=== PATIENT | male | born 1950 | race Two or more races ===

== ENCOUNTER 2024-12-25 13:45 | Emergency (ER) | payer MEDICAID, SELFPAY ==
[2024-12-25 14:01] VITALS: BP 145/57; PULSE 61; RESP 18; TEMP 36.9; O2SAT 96; BMI 26.4
--- NOTE | 2024-12-25 14:15 | XR_ITS ---
Examination: PA lateral chest 2 views TECHNIQUE: Upright AP lateral chest 2 views Exam date and time: December 25, 2024 1438 hours Comparison June 11, 2024 INDICATIONS: Coughing fever beginning 3 days ago. FINDINGS: Scarring versus mild pneumonia lingular segment Minor prominence of ventricle Cardiac leads satisfactory position Intact osseous structures IMPRESSION: Scarring versus mild pneumonia lingular segment left upper lobe, clinical correlation advised
--- NOTE | 2024-12-25 15:14 | PD.EDURI ---
Upper Respiratory Inf. RME/HPI General Chief Complaint: Flu Like Symptoms Stated Complaint: COUGH AND RAN OUT OF DIABETIC MEDICATION Time Seen by Provider: 12/25/24 13:59 Source: patient Arrival date/time: 12/25/24 13:45 74-year-old male with a history of type 2 diabetes, hypertension presents to the emergency room with a chief complaint of coughing, congestion, weakness x 3 weeks. Patient states he has also been out of diabetic medication for the last 3 days and recently picked up a prescription this morning and took his first dose. Patient denies any other signs and symptoms Mode of arrival: ambulatory Limitations: no limitations Related Data Home Medications ?Medication ?Instructions ?Recorded ?Confirmed empagliflozin 25 mg tablet 25 mg PO QDAY 03/24/21 10/31/22 (Jardiance) amlodipine 5 mg tablet 5 mg PO DAILY 10/26/22 10/31/22 meloxicam 15 mg tablet 15 mg PO QDAY 10/26/22 10/31/22 sitagliptin phosphate 50 1 tab PO BID 10/31/22 10/31/22 mg-metformin 1,000 mg tablet (Janumet) Previous Rx's ?Medication ?Instructions ?Recorded ondansetron HCl 4 mg tablet 4 mg PO Q8H #14 tabs 04/30/23 sucralfate 1 gram tablet (Carafate) 1 g PO BID #30 tabs 04/30/23 azithromycin 250 mg tablet See Rx Instructions PO .COMPLEX #6 06/11/24 tabs azithromycin 250 mg tablet See Rx Instructions PO .COMPLEX #6 12/25/24 (Zithromax Z-Stephon) tabs Allergies Allergy/AdvReac Type Severity Reaction Status Date / Time midazolam AdvReac Severe Agitated Verified 12/25/24 13:50 Review of Systems Review of Systems Systems Reviewed: All systems reviewed, normal except as documented Constitutional Constitutional: Reports system reviewed and no additional complaints, except as documented, Denies fatigue, Denies fever(s), Denies headache(s) and Denies weakness Eyes Eyes: Reports system reviewed and no additional complaints, except as documented, Denies blurry vision and Denies change in vision ENT Ears, Nose, Mouth, and Throat: Reports system reviewed and no additional complaints, except as documented, Denies otalgia, Denies headache(s), Reports nasal congestion, Denies throat swelling and Denies vertigo Cardiovascular Cardiovascular: Reports system reviewed and no additional complaints, except as documented, Denies chest pain, Denies dyspnea and Denies dyspnea on exertion Respiratory Respiratory: Reports system reviewed and no additional complaints, except as documented, Reports chest congestion, Reports cough, Denies dyspnea, Denies dyspnea on exertion and Denies wheezing Gastrointestinal Gastrointestinal: Reports system reviewed and no additional complaints, except as documented, Denies abdominal pain, Denies cramping, Denies nausea and Denies vomiting Genitourinary Genitourinary: Reports system reviewed and no additional complaints, except as documented, Denies dysuria and Denies hematuria Musculoskeletal Musculoskeletal: Reports system reviewed and no additional complaints, except as documented and Denies back pain Integumentary/Breasts Skin/Breast: Reports system reviewed and no additional complaints, except as documented and Denies wounds Neurologic Neurologic: Reports system reviewed and no additional complaints, except as documented, Denies confusion, Denies headache(s), Denies lack of coordination, Denies vertigo and Denies weakness Psychiatric Psychiatric: Reports system reviewed and no additional complaints, except as documented, Denies anxiety, Denies confusion, Denies depression, Denies paranoia, Denies suicidal ideation and Denies tactile hallucinations Endocrine Endocrine: Reports system reviewed and no additional complaints, except as documented and Denies fatigue Hematologic/Lymphatic Hematologic/Lymphatic: Reports system reviewed and no additional complaints, except as documented and Denies lymphadenopathy Allergic/Immunologic Allergic/Immunologic: Reports system reviewed and no additional complaints, except as documented, Denies throat swelling, Denies urticaria and Denies wheezing Past Medical History Past Medical History NEUROLOGIC: Negative Neurological Disorders CARDIAC: Positive Cardiac Disorders, Hypercholesterolemia, Congestive Heart Failure and Hypertension RESPIRATORY: Negative Chronic Obstructive Pulmonary Disease (COPD) or Asthma GASTROINTESTINAL: Negative Gastrointestinal Disorders GENITOURINARY: Negative Genitourinary Disorders or Renal Disease MUSCULOSKELETAL: Positive Musculoskeletal Disorders ENDOCRINE: Positive Diabetes Mellitus Type 2; Negative Endocrine Disorders or Diabetes Mellitus Type 1 HEMATOLOGIC: Negative Blood Disorders or Sickle Cell Disease Social History SMOKING STATUS: Never smoker SUBSTANCE USE: unknown ED Exam General Limitations: Present no limitations General appearance: Present alert and in no apparent distress Head Head exam: Present atraumatic Eye Eye exam: Present normal appearance, PERRL and EOMI ENT ENT exam: Present normal exam, normal oropharynx and mucous membranes moist Neck Neck exam: Present normal inspection, full ROM and trachea midline Chest Chest inspection: Present normal inspection and symmetric chest wall rise Respiratory Respiratory exam: Present normal lung sounds bilaterally and wheezes; Absent respiratory distress, stridor, accessory muscle use or prolonged expiratory phase Expanded Respiratory Exam Location: Left: wheezes, Right: wheezes and Lower: wheezes Cardiovascular Cardiovascular exam: Present regular rate, normal rhythm and normal heart sounds Abdominal Exam Abdominal exam: Present soft and normal bowel sounds Extremities Exam Extremities exam: Present normal inspection and full ROM Back Exam Back exam: Present normal inspection and full ROM Neurological Exam Neurological exam: Present alert, oriented X3 and CN II-XII intact Psychiatric Psychiatric exam: Present normal affect and normal mood Skin Skin exam: Present warm, dry, intact and normal color Course Quality Measures none Orders Category Date Time Status Bedside COVID-19 Antigen Test NOW Care 12/25/24 14:15 Active Bedside Influenza A&B Antigen Test NOW Care 12/25/24 14:15 Completed Fingerstick [Bedside Blood Glucose] NOW Care 12/25/24 14:15 Active XR chest 2V Stat Exams 12/25/24 14:15 Completed Albuterol/Ipratr Rt Emma [Duoneb Rt Emma] Med 12/25/24 14:16 Discontinued 3 ml INH X1 ONE Insulin Regular Med 12/25/24 14:22 Discontinued 8 unit SC X1 ONE Vital Signs Vital signs: Vital Signs Temperature 98.5 F 12/25/24 14:01 Pulse Rate 61 12/25/24 14:01 Respiratory Rate 18 12/25/24 14:01 Blood Pressure 145/57 H 12/25/24 14:01 Pulse Oximetry (%) 96 12/25/24 14:01 Oxygen Delivery Method Room Air 12/25/24 14:01 O2 saturation 96% on room air Upper Respiratory Infection MDM Narrative MDM Narrative:: 74-year-old male with a history of type 2 diabetes, hypertension presents to the emergency room with a chief complaint of coughing, congestion, weakness x 3 weeks. Patient states he has also been out of diabetic medication for the last 3 days and recently picked up a prescription this morning and took his first dose. Patient denies any other signs and symptoms Patient is hemodynamically stable he is afebrile not tachycardic O2 saturation 100% on room air Lung sounds have some mild left-sided upper and lower wheezing with auscultation. A breathing treatment was given and the patient had significant improvement to his symptoms X-ray was completed and shows some mild pneumonia. Antibiotics are sent to the patient's pharmacy patient was discharged and educated to follow-up with primary care provider and return to the emergency room for any evidence of worsening signs or symptoms Patient data External records reviewed:: [facility] previous records Clinical information provided by:: patient Social determinants that could affect healthcare access:: none Patient has the following chronic illnesses:: Diabetes and hypertension How is presenting disease/condition affected by chronic disease/condition?: uneffected by Evaluation data The following diagnostics were reviewed and interpreted by me:: lab results and radiology exam(s) Lab and/or radiology exams considered but not ordered:: Labs and radiology exams considered and ordered Interpretation Summary: Chest [id number]: Scarring versus mild pneumonia lingular segment Minor prominence of ventricle Cardiac leads satisfactory position Intact osseous structures IMPRESSION: Scarring versus mild pneumonia lingular segment left upper lobe, clinical correlation advised Medications / Prescriptions Medications or Prescriptions considered but not ordered:: Medication given Medication administrations:: Medication Administration History Discontinued Medications Albuterol/Ipratropium (Albuterol/Ipratropium (Duoneb) Rt Emma 3 Ml Nebu) 3 ml INH X1 ONE Stop: 12/25/24 14:17 Last Admin: 12/25/24 15:37 Dose: 3 ml Documented By: JOHNY Insulin Human Regular (Insulin Hum Regular 1 Unit/0.01 Ml (Per Unit)) 8 unit SC X1 ONE Stop: 12/25/24 14:23 Last Admin: 12/25/24 15:26 Dose: 8 unit Documented By: SHIRA Co-signed By: [facility] Medication given Consultations Consultation(s) initiated? (list below): No Diagnosis Upper Respiratory Differential Diagnosis: upper respiratory infection, viral infection, bronchitis, influenza and other (Community-acquired pneumonia) Most likely diagnosis given after review of the tests above:: Community-acquired pneumonia Admission Indicated Admission indicated?: not indicated Admission Request Was there a request for admission?: No Disposition Plan Disposition Plan: Discharge Discharge Attestation Discharge Attestation: The patient and all family members were given an opportunity to ask questions and understood the discharge instructions. Discharge instructions specifically effects, indications for sooner follow up or return to the emergency department, and the expected course of current diagnosis. Patient condition: Stable Discharge Plan Plan Patient Disposition: HOME (Self Care) Disposition Comment: Stable Prescriptions/Referrals Prescriptions/Med Rec: New azithromycin [Zithromax Z-Stephon] 250 mg tablet See Rx Instructions .ROUTE .COMPLEX Qty: 6 0RF Rx Instructions: For 250 mg dose pack: take 500 mg today (day 1), then 250 mg for 4 days (days 2-5) No Action Jardiance 25 mg Tablet 25 mg PO QDAY meloxicam 15 mg Tablet 15 mg PO QDAY amlodipine 5 mg Tablet 5 mg PO DAILY Janumet 50-1,000 mg Tablet 1 tab PO BID sucralfate [Carafate] 1 gram tablet 1 g PO BID Qty: 30 1RF ondansetron HCl 4 mg tablet 4 mg PO Q8H Qty: 14 0RF azithromycin 250 mg tablet See Rx Instructions .ROUTE .COMPLEX Qty: 6 0RF Rx Instructions: For 250 mg dose pack: take 500 mg today (day 1), then 250 mg for 4 days (days 2-5) Referrals: Dolores Fernando MD [Primary Care Provider] - In 1 week Problem List Clinical Impression: Community acquired pneumonia Patient/Caregiver Discharge Instructions Education Materials: ED Pneumonia (Adult) Additional Instructions: Por favor, consulte con bustos m?dico de cabecera en las pr?ximas 24 a 48 horas. La radiograf?a de t?rax muestra neumon?a. Se env?an antibi?ticos a bustos farmacia; rec?jalos y t?melos seg?n lo indicado. Si hay evidencia de empeoramiento de los signos o s?ntomas, regrese a la sho de emergencias de inmediato. Print Language: Slovenian Stand Alone Forms: Darcy Award Info., Patient Portal Info Letter PA/DRAMA THERAPIST Supervising Physician PA/DRAMA THERAPIST Supervising Physician: Dr. De Leon
[2024-12-25] MEDS: INSULIN HUM REGULAR 1 UNIT/0.01 ML (PER UNIT) 8 UNIT SC (15:26)
[2024-12-25 15:37] VITALS: PULSE 58; RESP 18; O2SAT 100
[2024-12-25] MEDS: ALBUTEROL/IPRATROPIUM (Duoneb) RT SOL 3 ML NEBU INH (15:37)
== END 2024-12-25 17:44 | disposition home or self-care (01) ==
PROVIDERS: Emergency Provider Emergency Medicine; PCP Obstetrics & Gynecology
DX: J18.9 Pneumonia, unspecified organism (principal); E11.9 Type 2 diabetes mellitus without complications; I10 Essential (primary) hypertension
CPT/HCPCS: 71046; 87400; 87811; 94640; 96372; 99283; A9270; J1815

== ENCOUNTER 2025-10-19 12:14 | Inpatient (IN) | payer MEDICAID, SELFPAY ==
[2025-10-19] VITALS (7 sets, daily range): BP systolic 100–124; BP diastolic 46–80; PULSE 73–98; RESP 17–90; TEMP 36.7–38.8; O2SAT 90–98; BMI 24.2; BMI 27.1
--- NOTE | 2025-10-19 13:43 | PD.EDRME ---
Rapid Medical Screening Exam RME Arrival date/time: 10/19/25 12:14 This is a 74-year-old male that comes into the emergency room complaints of skin tears/abrasions and wounds to bilateral legs and buttocks areas. Patient states he has had some of these skin breakdowns for a while but they recently got worse. Patient also complains of fever and chills. Patient has a history of high blood pressure, diabetes I have greeted and performed a focused initial assessment of this patient. Initial appropriate labs ordered at this time. A comprehensive ED assessment and evaluation of the patient and analysis of all test and completion of medical decision making process will be conducted by additional ED provider. Chief Complaint: Skin/Abscess/Foreign Body Time Seen by Provider: 10/19/25 12:20 Vital signs: Vital Signs Temperature 98.1 F 10/19/25 12:22 Pulse Rate 93 10/19/25 12:22 Respiratory Rate 19 10/19/25 12:22 Blood Pressure 124/80 10/19/25 12:22 Pulse Oximetry (%) 98 10/19/25 12:22 Oxygen Delivery Method Room Air 10/19/25 12:22 Exam: Alert and oriented, breathing even and unlabored Clinical Impression: Fever, multiple wounds throughout body
[2025-10-19 14:07] LABS: Lactate (Lactic Acid) 1.9 mMol/L (0.4-2.0)
[2025-10-19 14:33] LABS: Basophils # (Auto) 0.0 Thou/mm3 (0.0-0.2); Basophils % (Auto) 0 % (0-2.5); Eosinophils # (Auto) 0.1 Thou/mm3 (0.0-0.5); Eosinophils % (Auto) 1 % (0-10); Hematocrit 45.3 % (41.0-53.0); Hemoglobin 14.4 g/dL (13.5-16.0); Immature Granulocytes Auto 0.07 Thou/mm3 (0.00-0.00); Lymphocytes # (Auto) 1.5 Thou/mm3 (1.0-4.8); Lymphocytes % (Auto) 15 % (10-50); Mean Corpuscular HGB Conc 31.8 g/dl (31.0-37.0); Mean Corpuscular Hemoglobin 28.3 pg (25.0-35.0); Mean Corpuscular Volume 89 fL (80-100); Monocytes # (Auto) 0.3 Thou/mm3 (0.0-0.8); Monocytes % (Auto) 4 % (0-12); Neutrophils # (Auto) 7.9 Thou/mm3 (1.8-7.7); Neutrophils % (Auto) 80 % (37-80); Nucleated Red Blood Cell # 0.00 Thou/mm3 (0.00-0.00); Nucleated Red Blood Cell % 0 /100 WBC (0); Platelet Count 244 Thou/mm3 (140-440); RDW Standard Deviation 59.4 fL (35.1-43.9); Red Blood Count 5.09 Miln/mm3 (4.50-5.90); White Blood Count 9.8 Thou/mm3 (3.8-10.6)
[2025-10-19 14:34] LABS: Alanine Aminotransferase 30 U/L (10-49); Albumin, Serum 4.5 gm/dL (3.4-4.8); Albumin/Globulin Ratio 1.5 (1.2-2.2); Alkaline Phosphatase 145 U/L (46-116); Anion Gap 11 (7-16); Aspartate Amino Transferase 31 U/L (0-34); BUN/Creatinine Ratio 14 Ratio (12-20); Bilirubin,Total 0.5 mg/dL (0.3-1.2); Blood Urea Nitrogen 14 mg/dL (9-23); Calcium 8.8 mg/dL (8.3-10.6); Calcium (Corrected) 8.8 mg/dL (8.5-10.1); Carbon Dioxide 26.1 mMol/L (20.0-31.0); Chloride 100 mMol/L (98-107); Creatinine (Component) 1.0 mg/dL (0.6-1.3); Estimated Creatinine Clearance 57.6 mL/min (>60); Globulin 3.1 gm/dL (2.3-3.5); Glucose 56 mg/dL (74-106); Osmolality,Calculated 272 (275-295); Potassium 4.2 mMol/L (3.4-5.1); Procalcitonin 0.16 ng/ml (0.0-0.49); Sodium 137 mMol/L (136-145); Total Protein 7.6 gm/dL (5.7-8.2); eGFR > 60 See Note
--- NOTE | 2025-10-19 16:28 | PC.NURSE ---
CONTACTED DR JUAREZ (DERMATOLOGY) TO CONSULT WITH ISAIAH MARTINEZ. PHONE NUMBER [phone]
--- NOTE | 2025-10-19 16:38 | EDNOTE_ITS ---
ED Skin Abcess FB-RME/HPI General Chief complaint: Skin/Abscess/Foreign Body Stated complaint: RASH Time Seen by Provider: 10/19/25 12:20 Arrival date/time: 10/19/25 12:14 Mode of arrival: ambulatory Limitations: language barrier RME / HPI RME / HPI narrative: 10/19/25 12:14 This is a 74-year-old male that comes into the emergency room complaints of skin tears/abrasions and wounds to bilateral legs and buttocks areas. Patient states he has had some of these skin breakdowns for a while but they recently got worse. Patient also complains of fever and chills. Patient has a history of high blood pressure, diabetes At time of my assessment, patient reveals patchy red areas of insult that are weeping serous fluid rather than definitive blood. Friable tissue is noted throughout the bilateral lower extremities and extending up into the buttocks region. Patient denies any fever nausea or vomiting. Vital signs were stable arrival. Patient denies any history of skin related concerns. Patient does have a history of diabetes. Exam: Alert and oriented, breathing even and unlabored Impression: Fever, multiple wounds throughout body Related Data Home Medications ?Medication ?Instructions ?Recorded ?Confirmed empagliflozin 25 mg tablet 25 mg PO QDAY 03/24/2107/15 (Jardiance) amlodipine 5 mg tablet 5 mg PO DAILY 10/26/2210/31 meloxicam 15 mg tablet 15 mg PO QDAY 10/26/2210/31 sitagliptin phosphate 50 1 tab PO BID 10/31/22 mg-metformin 1,000 mg tablet (Janumet) Previous Rx's ?Medication ?Instructions ?Recorded ondansetron HCl 4 mg tablet 4 mg PO Q8H #14 tabs 04/30 sucralfate 1 gram tablet (Carafate) 1 g PO BID #30 tab s 04/30/23 azithromycin 250 mg tablet See Rx Instructions PO .COM PLEX #6 06/11/24 tabs azithromycin 250 mg tablet See Rx Instructions PO .COM PLEX #6 12/25/24 (Zithromax Z-Stephon) tabs Allergies Allergy/AdvReac Type Severity Reaction Status Date / Time midazolam AdvReac Severe Agitated Verified 10/19/25 12:22 Review of Systems Review of Systems Systems Reviewed: All systems reviewed, normal except as documented Past Medical History Past Medical History NEUROLOGIC: Negative Neurological Disorders CARDIAC: Positive Cardiac Disorders, Hypercholesterolemia, Congestive Heart Failure and Hypertension RESPIRATORY: Negative Chronic Obstructive Pulmonary Disease (COPD) or Asthma GASTROINTESTINAL: Negative Gastrointestinal Disorders GENITOURINARY: Negative Genitourinary Disorders or Renal Disease MUSCULOSKELETAL: Positive Musculoskeletal Disorders ENDOCRINE: Positive Diabetes Mellitus Type 2; Negative Endocrine Disorders or Diabetes Mellitus Type 1 HEMATOLOGIC: Negative Blood Disorders or Sickle Cell Disease Social History SMOKING STATUS: Never smoker SUBSTANCE USE: unknown ED Exam Narrative Physical exam: Patient was in mild distress due to bilateral lower extremity leg discomfort at time of evaluation. Patient appears to be in poor overall health. General Limitations: Present language barrier General appearance: Present alert and in distress (My distress due to bilateral lower extremity dermatological concerns) Head Head exam: Present atraumatic Eye Eye exam: Present normal appearance, PERRL and EOMI ENT ENT exam: Present normal exam, normal oropharynx and mucous membranes moist Neck Neck exam: Present normal inspection, full ROM and trachea midline Chest Chest inspection: Present normal inspection and symmetric chest wall rise Respiratory Respiratory exam: Present normal lung sounds bilaterally Cardiovascular Cardiovascular exam: Present regular rate, normal rhythm and normal heart sounds Abdominal Exam Abdominal exam: Present soft and normal bowel sounds Extremities Exam Extremities exam: Present normal inspection and full ROM Back Exam Back exam: Present normal inspection and full ROM Neurological Exam Neurological exam: Present alert, oriented X3 and CN II-XII intact Psychiatric Psychiatric exam: Present normal affect and normal mood Skin Skin exam: Present other (Patient displays extensive excoriations throughout bilateral lower extremities that resulted in erythematous weeping wounds with friable tissue noted throughout. The tissue around some of these wounds may be the remnant of bulla formation. Wounds extend all the way up into the buttocks region bila) Course Quality Measures none Orders Category Date Time Status Blood Culture (Lab) Stat Lab 10/19/25 13:56 Received CBC Stat Lab 10/19/25 13:56 Completed Comprehensive Metabolic Panel Stat Lab 10/19/25 13:56 Completed Lactic Acid [Lactate (Lactic Acid)] Stat Lab 10/19/25 13:56 Completed Procalcitonin Stat Lab 10/19/25 13:56 Completed As noted above Vital Signs Vital signs: Vital Signs Temperature 98.1 F 10/19/25 12:22 Pulse Rate 93 10/19/25 12:22 Respiratory Rate 19 10/19/25 12:22 Blood Pressure 124/80 10/19/25 12:22 Pulse Oximetry (%) 98 10/19/25 12:22 Oxygen Delivery Method Room Air 10/19/25 12:22 As noted above Skin / Abscess / Foreign Body MDM Narrative MDM Narrative:: Initial diagnosis required multiple provider evaluations. Discussed the case with the hospitalist and they came down to evaluate the patient. We all agreed that the patient needed to be admitted for protection from infective components, but none of us were confident in the cause of the skin sloughing event. Contacted Dr. Raymond Vazquez, a former commercial credit head that worked at this facility several years back. Discussed the patient presentation and laboratory results. 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 He advised utilizing a tyrell quinolone to stave off any infective concerns, but with r espect to the actual wounds, advised utilizing a high-dose topical corticosteroid such as clobetasol or triamcinolone high dose. Additionally, he advised utilizing some prednisone systemically. Discussed the conversation with the hospitalist, they agreed to accept the patient as an admission. Patient will be admitted under Dr. Fuller. Patient data External records reviewed:: [facility] previous records Clinical information provided by:: patient Social determinants that could affect healthcare access:: none Patient has the following chronic illnesses:: Diabetes mellitus How is presenting disease/condition affected by chronic disease/condition?: exacerbated by Evaluation data The following diagnostics were reviewed and interpreted by me:: lab results Lab and/or radiology exams considered but not ordered:: None Interpretation Summary: Bullous pemphigoid Medications / Prescriptions Medications or Prescriptions considered but not ordered:: None Medication administrations:: None Consultations Consultation(s) initiated? (list below): Yes Consultation #1 (Physician, Specialty, Details): Dr. Raymond Dumont Time: 16:30 Diagnosis Skin/Abscess Differential Diagnosis: abscess of skin or subcutaneous tissue Most likely diagnosis given after review of the tests above:: Bullous pemphigoid Admission Indicated Admission indicated?: indicated Explain why admission is indicated or not indicated:: Systemic antibiotics and topical steroids Admission Request Was there a request for admission?: Yes Admission Attestation Admission request attestation: Discussed case with Dr. Fuller from Hospitalist service regarding admission. Discussed patients ED course, exam findings, labs, and radiology results. The Hospitalist [agrees,declines] to accept the patient for admission. Disposition Plan Disposition Plan: Admit Discharge Plan Plan Patient Disposition: Admit Acute Care w/in Hospital Prescriptions/Referrals Prescriptions/Med Rec: No Action Jardiance 25 mg Tablet 25 mg PO QDAY meloxicam 15 mg Tablet 15 mg PO QDAY amlodipine 5 mg Tablet 5 mg PO DAILY Janumet 50-1,000 mg Tablet 1 tab PO BID sucralfate [Carafate] 1 gram tablet 1 g PO BID Qty: 30 1RF ondansetron HCl 4 mg tablet 4 mg PO Q8H Qty: 14 0RF azithromycin 250 mg tablet See Rx Instructions .ROUTE .COMPLEX Qty: 6 0RF Rx Instructions: For 250 mg dose pack: take 500 mg today (day 1), then 250 mg for 4 days (days 2-5) azithromycin [Zithromax Z-Stephon] 250 mg tablet See Rx Instructions .ROUTE .COMPLEX Qty: 6 0RF Rx Instructions: For 250 mg dose pack: take 500 mg today (day 1), then 250 mg for 4 days (days 2-5) Referrals: Dolores Fernando, COMMUNICATIONS PROGRAM MANAGER-C [Primary Care Provider] - In 1 week Problem List Clinical Impression: Bullous pemphigoid Patient/Caregiver Discharge Instructions Education Materials: Understanding Bullous Pemphigoid Print Language: Persian Stand Alone Forms: Darcy Award Info., Patient Portal Info Letter
[2025-10-19] MEDS: DEXTROSE 50%-WATER INJ 50 ML SYRINGE 25 ML IV (17:21)
--- NOTE | 2025-10-19 17:30 | ESHP_ITS ---
<Statement entered by Christa Fuller MD - 10/20/25 14:35> I reviewed above note and agree with findings and plans. I have also personally examined the patient with medicine team and went over assessment and plan with medical team including internet programmer and resident physician. <Statement entered by Oziel Little MD - 10/19/25 18:05> Patient was examined and case was reviewed with team including attending physician. Note reviewed, I agree with most of its contents and agree with the patient's care as documented by Dr. Lowe In summary: This is a 74y/o M with hypertension, insulin-dependent diabetes mellitus who presented to the ED due to bilateral lower extremity rash. Apparently rash started around 5 to 8 days started on the left lower extremity on the first metatarsal then later spread to his right lower extremity and now has disseminated up to the buttocks region. Rash also noted to be sloughing on the anterior aspect of the shins patient states it is burning and painful with any type of movement. Patient finds relief by dipping both his legs and buckets of water. In the ED he was noted to have a fever and mild tachycardia, we consulted tele-dermatology who recommended admission. Patient will be started on IV antibiotics, topical steroid cream and low-dose prednisone for possible bullous pemphigoid. Will order autoimmune work up and will do skin biopsy in the am . Case discussed with my attending Dr. Jonny Little MD PGY-2 Disclaimer: Despite multiple revisions, due to the dictation software being used, the document bellow may not be free of grammatical errors including phonetic/typographic errors. However, this does not deter from our commitment to providing health care in the patient's best interest in mind. Documentation for date of: 10/19/25 HPI History of Present Illness History of present illness: 74-year-old male with a past medical history significant for insulin-dependent type 2 diabetes mellitus, hypertension, hyperlipidemia, and complete heart block status post pacemaker placement in 2022, who presents for evaluation of a painful rash. The rash began approximately 5-8 days ago, initially involving the left foot. It subsequently spread to both lower extremities and extended to the buttock region about one week later. The patient describes the rash as severely painful, particularly with contact such as sitting, walking, or any movement. He reports the pain is more prominent than pruritus and avoids scratching due to concern for nail injury given his diabetes. The patient notes a burning sensation associated with the rash that improves with exposure to water immersion. He reports symptom relief while showering or soaking his legs in a bucket of room-temperature water. He denies associated fevers, nausea, vomiting, or diarrhea. He reports adherence to his diabetes medications and follows with his primary care provider every three months. He denies sick contacts, recent travel, pet exposure, or use of new skin products or laundry detergents. Occupationally, he works picking [employer] and wears long pants while working. He received an influenza vaccination approximately 5?8 days ago. ED Course: -Initial vitals were: BP: 124/80, HR 93, RR 19, 98.1F, O2 sat 98% room air. -Labs significant for: glucose 56, alkaline phosphatase 145. -Imaging included: none. -In the ED, patient was given: none. Past Medical History: as above Past Surgical History: none Social History: - Smoking: never smoker - Alcohol: history of alcohol use, patient states that he no longer drinks - Illicit drugs: none - Occupation: [employer] Current Medications: pending med recs. Allergies: Patient states no known drug allergies. Ryan Harrison PA-C contacted Dr. Raymond Vazquez, a former inspector filters that worked at this facility several years back. Dr. Vazquez believes the patient may have bullous pemphigoid and recommended antibitoics for infection, high-dose topical corticosteroids such as clobetasol Discussed the patient presentation and laboratory results. 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 He advised utilizing a tyrell quinolone to stave off any infective concerns, but with respect to the actual wounds, advised utilizing a high-dose topical corticosteroid such as clobetasol or triamcinolone high dose. Additionally, he advised utilizing some prednisone systemically. Discussed the conversation with the hospitalist, they agreed to accept the patient as an admission. Patient will be admitted under Dr. Fuller. Patient data Review of Systems Review of Systems Narrative Review of Systems: All 13 review of systems are negative except as listed above in the HPI. Exam Vital Signs Temp Pulse Resp BP Pulse Ox O2 Del Method 101.5 F H 98 20 124/70 98 Room Air 10/19/25 17:09 10/19/25 17:09 10/19/25 17:09 10/19/25 17:09 10/19/25 17:09 10/19/25 17:09 Narrative Exam Physical Exam General: Awake and in no acute distress. Conversational and non-toxic appearing. Full body shivering. HEENT: Normocephalic, atraumatic, extraocular movements intact, pupils equal and reactive to light. Heart: Regular rate and rhythm, no murmurs, rubs or gallops. Lungs: Clear to auscultation with no wheezing or crackles bilaterally. Non- labored respirations, symmetric chest rise, no use of accessory muscles. Abdomen: Soft, nondistended, nontender. No guarding or rebound tenderness. Neurologic: Alert and oriented x3, no gross neurological deficit, and patient able to move all 4 extremities. Extremities: No edema, clubbing or cyanosis. Skin: Excoriations throughout bilateral lower extremities that resulted in erythematous weeping wounds with friable tissue noted throughout. Negative nikolsky sign. Rounds extend all the way up into the buttocks region. Psychiatric: Cooperative, appropriate mood and affect. Results: Labs 10/20/25 04:46 10/20/25 04:46 Labs: Short CBC 10/19/25 Range/Units 13:56 WBC 9.8 (3.8-10.6) Thou/mm3 Hgb 14.4 (13.5-16.0) g/dL Hct 45.3 (41.0-53.0) % Plt Count 244 (140-440) Thou/mm3 BMP 10/19/25 13:56 Sodium 137 Potassium 4.2 Chloride 100 Carbon Dioxide 26.1 BUN 14 Creatinine 1.0 Glucose 56 L Calcium 8.8 Liver Function 10/19/25 Range/Units 13:56 Total Bilirubin 0.5 (0.3-1.2) mg/dL AST 31 (0-34) U/L ALT 30 (10-49) U/L Alkaline Phosphatase 145 H (46-116) U/L Albumin 4.5 (3.4-4.8) gm/dL Quality Measures Quality Measures none Advance care planning discussed with:: patient Medications Home Medications and Allergies Home Medications ?Medication ?Instructions ?Recorded ?Confirmed ?Type empagliflozin 25 mg tablet 25 mg PO QDAY 03/24/2107/15 History (Jardiance) amlodipine 5 mg tablet 5 mg PO DAILY 10/26/2210/31 History meloxicam 15 mg tablet 15 mg PO QDAY 10/26/2210/31 History sitagliptin phosphate 50 1 tab PO BID 10/31/22 History mg-metformin 1,000 mg tablet (Janumet) Allergies Allergy/AdvReac Type Severity Reaction Status Date / Time midazolam AdvReac Severe Agitated Verified 10/19/25 12:22 Visit Medications Acetaminophen (Acetaminophen 325 Mg Tablet) 650 mg PO Q6H PRN PRN Reason: Fever >101.5 Stop: 11/18/25 16:42 Clobetasol Propionate (Clobetasol Propionate Cr 15 Gm Tube) 0 gm TOP TID FORTINO Stop: 11/18/25 21:59 Dextrose (Dextrose 50%-Water Inj 50 Ml Syringe) 25 ml IV Q15MIN PRN PRN Reason: BG 50-70 responsive npo pt Stop: 11/18/25 16:46 Last Admin: 10/19/25 17:21 Dose: 25 ml Dextrose (Dextrose 50%-Water Inj 50 Ml Syringe) 50 ml IV Q15MIN PRN PRN Reason: BG <50 OR BG <70 & pt unresponsive Stop: 11/18/25 16:46 Doxycycline Hyclate (Doxycycline 100 Mg Tablet) 100 mg PO BID [facility] Stop: 10/26/25 20:59 Glucagon (Glucagon Inj 1 Mg Vial) 1 mg IM Q15MIN PRN PRN Reason: BG <70, and no IV access Heparin Sodium (Porcine) (Heparin Sod Inj 5000 Unit/Ml Vial) 5,000 unit SC BID [facility] Stop: 11/02/25 20:59 Piperacillin/Tazobactam/Dextrose (Zosyn) 50 mls @ 100 mls/hr IV Q12HR FORTINO; Protocol Stop: 10/26/25 17:16 Piperacillin/Tazobactam/Dextrose (Zosyn) 3.375 gm in 50 mls @ 100 mls/hr IV X1 ONE; Protocol Stop: 10/19/25 17:59 Insulin Human Lispro (Insulin Lispro (Admelog) 1 Unit/0.01 Ml Unit) 0 unit SC AC FORTINO; Protocol Stop: 11/18/25 16:59 Last Admin: 12/28/25 17:24 Dose: Not Given Ondansetron HCl (Ondansetron Inj 2 Mg/Ml Inj 2 Ml) 4 mg IVP Q6H PRN; Protocol PRN Reason: NAUSEA OR VOMITING Stop: 11/18/25 16:42 Prednisone (Prednisone 20 Mg Tablet) 30 mg PO QDAY [facility] Stop: 10/26/25 17:08 Discontinued Medications Clobetasol Propionate (Clobetasol Propionate Cr 15 Gm Tube) 0 gm TOP BID [facility] Stop: 11/18/25 20:59 Assessment & Plan Plan 74-year-old man with insulin-dependent type 2 diabetes, hypertension, hyperlipidemia, and complete heart block s/p pacemaker (2022) presenting with a progressive, severely painful burning rash that began on the left foot and spread bilaterally up the lower extremities to the buttocks with sloughing lesions, concerning for bullous pemphigoid and admitted for IV antibiotics, high-potency topical steroids, and systemic corticosteroids. #Diffuse lower extremities and buttock rash #Concern for bullous pemphigoid - Diffuse, painful rash involving the bilateral lower extremities and buttocks, characterized by burning pain, sloughing lesions, and associated pruritus. - Rash began approximately 5?8 days prior to presentation, initially localized to the left lower extremity near the first metatarsal, with subsequent progression to the right lower extremity and extension proximally to the buttock region. Sloughing lesions are most prominent along the anterior shins, with pain exacerbated by movement and contact. - Patient reports symptomatic relief with water immersion, including soaking his legs in buckets of water. - In the ED, he was noted to have fever and mild tachycardia. - Tele-dermatology consultation recommended hospital admission for initiation of systemic and high-potency topical corticosteroids, antibiotic therapy, and further diagnostic evaluation. Plan: * Clobetasol BID to affected areas. * Prednisone 30 mg PO daily. * Empiric antibiotics: Doxycycline 100 mg PO BID and Piperacillin?tazobactam (Zosyn) IV to cover for Pseudomonas and MRSA. Cover for possible superimposed skin infection. * Monitor for signs of systemic infection (fever, leukocytosis, worsening erythema). * Autoimmune workup: BP180/BP230 antibodies. * ESR and CRP pending. * Wound care consult for skin protection and barrier management. * Acetaminophen PRN for pain and fever. * Cocci serology pending. * Urinalysis pending. #Insulin-dependent diabetes mellitus #Hypoglycemia - On admission initial glucose 56. - Hemoglobin A1c 13.6 (10/2022). Plan: * Held home medications. * Bedside blood glucose checks ACHS. * Insulin lispro sliding scale, adjusted as necessary. * Carb consistent low diet. * Hemoglobin A1c pending. * Close glucose monitoring given steroid therapy. * Hypoglycemia protocol in place (noted ED glucose of 56). #Hypertension - pending med recs. #Hyperlipidemia - pending med recs. - lipid panel pending. Health Maintenance Disposition: med surg DVT prophylaxis: Heparin 5,000 U subQ GI prophylaxis: not indicated Diet: carb consistent low Farias: none Lines: Peripheral IV CODE STATUS: FULL --- Patient plan of care was discussed with the senior resident, Dr. Farzad Little, and attending physician, . Sejal Lowe, DO PGY-1
--- NOTE | 2025-10-19 17:30 | PC.NURSE ---
SPOKE TO DR. PARK AND MADE AWARE PT'S FSBS 59 INITIALLY AND FSBS 66 FOR 2ND TIME CHECKING PT'S FSBS. PT GIVEN 12.5G OF D50 PER PROTOCOL AND STANDING ORDERS; MD ALSO MADE AWARE PT'S RECTAL TEMP AT THIS TIME 101.5F.
[2025-10-19] MEDS: ACETAMINOPHEN 325 MG TABLET 650 MG PO (17:33)
[2025-10-19] MEDS: PIPER/TAZO 3.375 GM PREMIX 3.375 GM/50 ML BAG IV ×2 (18:23→21:22)
[2025-10-19 18:34] LABS: Misc Send Out* See Sep Rpt
[2025-10-19 18:53] LABS: Collection Type, Urine Clean Catch
[2025-10-19 19:33] LABS: Amphetamine/Methamp Scrn,U Negative (Negative); Barbiturate Screen,Urine Negative (Negative); Benzodiazepines Screen,Urine Negative (Negative); Benzoylecgonine Screen, Ur Negative (Negative); Fentanyl Screen,Urine Negative (Negative); Opiate Screen,Urine Negative (Negative); THC Screen,Urine Negative (Negative)
[2025-10-19 19:49] LABS: Bacteria,Urine Rare; Bilirubin,Urine Negative (Negative); Blood,Urine Negative (Negative); Color,Urine Yellow (Lt Yel-Yel); Glucose, Urine 4+ (Negative); Ketones,Urine Negative (Negative); Leukocyte Esterase,Urine Positive (Negative); Nitrite,Urine Negative (Negative); PH,Urine 6.5 (5.0-7.0); Protein,Urine 1+ (Neg - Trace); RBC,Urine 2 /hpf (0-3); Specific Gravity,Urine 1.025 (1.001-1.035); Squamous Epithelial Cell,Urine 2 /hpf (0-5); Urobilinogen,Urine Negative mg/dL (0.0-1.0); WBC,Urine 2 /hpf (0-5)
[2025-10-19 19:54] LABS: Clarity,Urine Hazy (Clear/Hazy)
[2025-10-19] MEDS: DOXYCYCLINE 100 MG TABLET PO (21:22)
[2025-10-19] MEDS: HEPARIN SOD INJ 5000 UNIT/ML VIAL SC (21:39)
[2025-10-19] MEDS: HYDROmorphone INJ 2 MG/ML VIAL 0.5 MG IVP (21:56)
[2025-10-20] VITALS (8 sets, daily range): BP systolic 121–144; BP diastolic 65–87; PULSE 65–89; RESP 16–98; TEMP 35.9–36.8; O2SAT 94–98
--- NOTE | 2025-10-20 00:22 | PC.NURSE ---
Attempted to do Med/Rec with patient. Patient unable to recall dose and frequency of home medications. AM nurse to follow up with family member to obtain Med/Rec.
[2025-10-20] MEDS: PIPER/TAZO 3.375 GM PREMIX 3.375 GM/50 ML BAG IV ×3 (05:17→21:44)
[2025-10-20 06:07] LABS: Basophils # (Auto) 0.0 Thou/mm3 (0.0-0.2); Basophils % (Auto) 0 % (0-2.5); Eosinophils # (Auto) 0.0 Thou/mm3 (0.0-0.5); Eosinophils % (Auto) 0 % (0-10); Hematocrit 42.8 % (41.0-53.0); Hemoglobin 13.4 g/dL (13.5-16.0); Immature Granulocytes Auto 0.09 Thou/mm3 (0.00-0.00); Lymphocytes # (Auto) 0.9 Thou/mm3 (1.0-4.8); Lymphocytes % (Auto) 9 % (10-50); Mean Corpuscular HGB Conc 31.3 g/dl (31.0-37.0); Mean Corpuscular Hemoglobin 27.9 pg (25.0-35.0); Mean Corpuscular Volume 89 fL (80-100); Monocytes # (Auto) 0.2 Thou/mm3 (0.0-0.8); Monocytes % (Auto) 2 % (0-12); Neutrophils # (Auto) 8.4 Thou/mm3 (1.8-7.7); Neutrophils % (Auto) 87 % (37-80); Nucleated Red Blood Cell # 0.00 Thou/mm3 (0.00-0.00); Nucleated Red Blood Cell % 0 /100 WBC (0); Platelet Count 261 Thou/mm3 (140-440); RDW Standard Deviation 57.6 fL (35.1-43.9); Red Blood Count 4.81 Miln/mm3 (4.50-5.90); White Blood Count 9.6 Thou/mm3 (3.8-10.6)
[2025-10-20 06:49] LABS: Alanine Aminotransferase 28 U/L (10-49); Albumin, Serum 4.3 gm/dL (3.4-4.8); Albumin/Globulin Ratio 1.3 (1.2-2.2); Alkaline Phosphatase 144 U/L (46-116); Anion Gap 12 (7-16); Aspartate Amino Transferase 28 U/L (0-34); BUN/Creatinine Ratio 16 Ratio (12-20); Bilirubin,Total 0.7 mg/dL (0.3-1.2); Blood Urea Nitrogen 16 mg/dL (9-23); C-Reactive Protein 14.8 mg/dL (0.0-0.9); Calcium 9.0 mg/dL (8.3-10.6); Calcium (Corrected) 9.0 mg/dL (8.5-10.1); Carbon Dioxide 24.0 mMol/L (20.0-31.0); Cardiac Risk Estimate 3.0 RATIO (4.0-6.7); Chloride 98 mMol/L (98-107); Cholesterol 189 mg/dL (132-200); Creatinine (Component) 1.0 mg/dL (0.6-1.3); Estimated Creatinine Clearance 53.9 mL/min (>60); Globulin 3.2 gm/dL (2.3-3.5); Glucose 167 mg/dL (74-106); HDL Cholesterol 63 mg/dL (40-60); LDL Cholesterol,Calculated 103 mg/dL (0-130); Magnesium 2.4 mg/dL (1.6-2.6); Osmolality,Calculated 273 (275-295); Phosphorous 4.3 mg/dL (2.4-5.1); Potassium 4.9 mMol/L (3.4-5.1); Sodium 134 mMol/L (136-145); Total Protein 7.5 gm/dL (5.7-8.2); Triglycerides 113 mg/dL (30-150); eGFR > 60 See Note
[2025-10-20 07:08] LABS: Sed Rate (ESR) 127 mm/hr (0-20)
[2025-10-20 07:31] LABS: Glucose Estimated Average 249 mg/dL (80-131); Hemoglobin A1C 10.3 % Hgb (4.8-6.0)
[2025-10-20] MEDS: HEPARIN SOD INJ 5000 UNIT/ML VIAL SC ×2 (08:17→21:44)
[2025-10-20] MEDS: DOXYCYCLINE 100 MG TABLET PO ×2 (08:17→21:44)
[2025-10-20] MEDS: CLOBETASOL PROPIONATE CR 15 GM TUBE TOP ×2 (10:14→21:59)
[2025-10-20] MEDS: TRIAMCINOLONE ACET 0.025% TOP (10:14)
--- NOTE | 2025-10-20 10:55 | EKG_ITS ---
[facility] Test Date: 2025-10-20 Pat Name: HUMPHREY GILLDepartment: [facility] Gender: Male [employer] Pay Clerk: [employer] : [id number] Requested By: Sejal Nuñez Order Number: [id number] Reading MD: Sejal Nuñez Measurements Intervals [place] Rate: 73 P: 57 NH: 218 QRS: -89 QRSD: 181 T: 81 QT: 447 QTc: 496 Interpretive Statements ELECTRONIC VENTRICULAR PACEMAKER ABNORMAL RHYTHM ECG Compared to ECG 06/11/2024 16:39:27 No significant changes /store/S0/[id number].pdf
--- NOTE | 2025-10-20 11:39 | PC.SS ---
Elieser Fernando is a 74 year-old male admitted to [facility] for RASH. SS conducted bedside contact with the patient to complete initial assessment and to discuss discharge planning. Role and reason explained. Patient confirmed demographic information. Patient identifies his Jackie Fernando [phone] as his surrogate decision maker. Pt states he is able to complete all ADL?s independently. Pt utilizes a rollator walker for ambulation. Pts PCP is Doloers Fernando last visit was 3 months ago. Pharmacy of choice is [email or web address]. Discharge options discussed and the pt wishes to return home.? Pt will provide transport. No further intervention required at this time, psychologist social would be available to address any further concerns. DC Plan: Home Contact: Jackie Wade Address: Confirmed on face sheet PCP: Dolores Fernando
[2025-10-20] MEDS: INSULIN LISPRO (AdmeLOG) 1 UNIT/0.01 ML UNIT SC ×3 (11:40→21:50)
--- NOTE | 2025-10-20 12:05 | ESPR_ITS ---
<Statement entered by Christa Fuller MD - 10/31/25 07:43> I reviewed above note and agree with findings and plans. I have also personally examined the patient with medicine team and went over assessment and plan with medical team including video editing internship and resident physician. <Statement entered by Oziel Little MD - 10/20/25 16:51> Patient was examined and case was reviewed with team including attending physician. Note reviewed, I agree with most of its contents and agree with the patient's care as documented by Dr. Lowe Patient seen today at the bedside found awake, alert, orientedx3. No overnight events reported. No active complaints at this time, but does still state burning sensation on his lower extremities and pain. Vital signs and labs reviewed. On physical exam noted to have spreading of his rash now noticiable on his anterior abdomen however character of abdominal rash seems to be more fungal in natures. Fluconazole started 150mg BID for possible fungal infection and continue topical steroids and oral prednisone. Case discussed with my attending Dr. Jonny Little MD PGY-2 Disclaimer: Despite multiple revisions, due to the dictation software being used, the document bellow may not be free of grammatical errors including phonetic/typographic errors. However, this does not deter from our commitment to providing health care in the patient's best interest in mind. Documentation for date of: 10/20/25 Subjective Subjective Interval history: - Overnight, the patient received Dilaudid 0.5 mg for pain from rash. Wound culture taken from left leg. - The rash has progressed to involve the abdomen and appears morphologically distinct from the lower extremity rash, with features concerning for a fungal etiology. Fluconazole has been added. - Continue clobetasol. - ESR are CRP are elevated. - Continue prednisone 30 mg daily. - Continue doxycycline and zosyn. - Continue close monitoring of the rash, if there is no clinical improvement, will evaluate for transfer to a burn center. Exam Vital Signs Temp Pulse Resp BP Pulse Ox O2 Del Method O2 Flow Rate 96.8 F 75 18 135/79 H 96 Room Air 2 10/20/25 08:00 10/20/25 08:00 10/20/25 08:00 10/20/25 08:00 10/20/25 08:00 10/20/25 08:00 10/19/25 19:36 Narrative Exam Physical Exam General: Awake and in no acute distress. Conversational and non-toxic appearing. HEENT: Normocephalic, atraumatic, extraocular movements intact, pupils equal and reactive to light. Heart: Regular rate and rhythm, no murmurs, rubs or gallops. Lungs: Clear to auscultation with no wheezing or crackles bilaterally. Non- labored respirations, symmetric chest rise, no use of accessory muscles. Abdomen: Soft, nondistended, nontender. No guarding or rebound tenderness. Neurologic: Alert and oriented x3, no gross neurological deficit, and patient able to move all 4 extremities. Extremities: No edema, clubbing or cyanosis. Skin: see attached photos. Psychiatric: Cooperative, appropriate mood and affect. Objective Labs 10/20/25 04:46 10/20/25 04:46 Labs: Laboratory Results - last 24 hr 10/19/25 10/19/25 10/20/25 13:56 18:42 04:46 WBC 9.8 9.6 RBC 5.09 4.81 Hgb 14.4 13.4 L Hct 45.3 42.8 MCV 89 89 MCH 28.3 27.9 MCHC 31.8 31.3 RDW Std Deviation 59.4 H 57.6 H Plt Count 244 261 Neut % (Auto) 80 87 H Lymph % (Auto) 15 9 L [place] % (Auto) 4 2 Eos % (Auto) 1 0 Baso % (Auto) 0 0 Neut # (Auto) 7.9 H 8.4 H Lymph # (Auto) 1.5 0.9 L [place] # (Auto) 0.3 0.2 Eos # (Auto) 0.1 0.0 Baso # (Auto) 0.0 0.0 Immature Gran # (Auto) 0.07 H 0.09 H Absolute Nucleated RBC 0.00 0.00 Immature Gran % 1 H 1 H Nucleated RBC % 0 0 ESR 127 H Sodium 137 134 L Potassium 4.2 4.9 D Chloride 100 98 Carbon Dioxide 26.1 24.0 Anion Gap 11 12 BUN 14 16 Creatinine 1.0 1.0 Estim Creat Clear Calc 57.6 L 53.9 L eGFR > 60 > 60 BUN/Creatinine Ratio 14 16 Glucose 56 L [address] Glu mg/dL 249 H Hemoglobin A1c 10.3 H Calculated Osmolality 272 L 273 L Lactic Acid 1.9 Calcium 8.8 9.0 Corrected Calcium 8.8 9.0 Phosphorus 4.3 Magnesium 2.4 Total Bilirubin 0.5 0.7 AST 31 28 ALT 30 28 Alkaline Phosphatase 145 H 144 H C-Reactive Prot, Quant 14.8 H Total Protein 7.6 7.5 Albumin 4.5 4.3 Globulin 3.1 3.2 Albumin/Globulin Ratio 1.5 1.3 Triglycerides 113 Cholesterol 189 LDL Cholesterol, Calc 103 HDL Cholesterol 63 H Cholesterol/HDL Ratio 3.0 L Procalcitonin 0.16 Ur Collection Type Clean Catch Urine Color Yellow Urine Clarity Hazy Urine pH 6.5 Ur Specific [place] 1.025 Urine Protein 1+ A Urine Glucose (UA) 4+ A Urine Ketones Negative Urine Blood Negative Urine Nitrite Negative Urine Bilirubin Negative Urine Urobilinogen (Auto) Negative Ur Leukocyte Esterase Positive Urine RBC 2 Urine WBC 2 Ur Squamous Epith Cells 2 Urine Bacteria Rare Urine Opiates Screen Negative Urine Fentanyl Screen Negative Ur Barbiturates Screen Negative U Amphetamin/Meth Scrn Negative U Benzodiazepines Scrn Negative U Cocaine Metab Screen Negative U Marijuana (THC) Screen Negative Quality Measures Quality Measures none Advance care planning discussed with:: patient Assessment & Plan Assessment Current Active Medications: Generic Name Dose Route Start Last Admin Trade Name Freq PRN Reason Stop Dose Admin Acetaminophen 650 mg 10/19/25 16:43 10/19/25 17:33 Acetaminophen 325 Mg Tablet PO 11/18/25 16:42 650 mg Q6H PRN Administration Fever >101.5 Clobetasol Propionate 0 gm 10/19/25 21:00 10/20/25 10:14 Clobetasol Propionate Cr 15 Gm Tube TOP 11/18/25 20:59 1 appln BID FORTINO Administration Dextrose 25 ml 10/19/25 16:47 10/19/25 17:21 Dextrose 50%-Water Inj 50 Ml Syringe IV 11/18/25 16:46 25 ml Q15MIN PRN Administration BG 50-70 responsive npo pt Dextrose 50 ml 10/19/25 16:47 Dextrose 50%-Water Inj 50 Ml Syringe IV 11/18/25 16:46 Q15MIN PRN BG <50 OR BG <70 & pt unresponsive Doxycycline Hyclate 100 mg 10/19/25 21:00 10/20/25 08:17 Doxycycline 100 Mg Tablet PO 10/26/25 20:59 100 mg BID FORTINO Administration Fluconazole 150 mg 10/20/25 12:15 Fluconazole 150 Mg Tablet PO 10/27/25 12:14 QDAY FORTINO Glucagon 1 mg 10/19/25 16:47 Glucagon Inj 1 Mg Vial IM Q15MIN PRN BG <70, and no IV access Heparin Sodium (Porcine) 5,000 unit 10/19/25 21:00 10/20/25 08:17 Heparin Sod Inj 5000 Unit/Ml Vial SC 11/02/25 20:59 5,000 unit BID FORTINO Administration Piperacillin/Tazobactam/Dextrose 3.375 gm in 50 mls @ 12.5 mls/hr 10/19/25 22:00 10/20/25 05:17 Zosyn IV 10/26/25 21:59 12.5 mls/hr Q8HR FORTINO Administration Protocol Insulin Human Lispro 0 unit 10/19/25 17:00 10/20/25 11:40 Insulin Lispro (Admelog) 1 Unit/0.01 Ml Unit SC 11/18/25 16:59 3 unit AC FORTINO Administration Protocol Ondansetron HCl 4 mg 10/19/25 16:43 Ondansetron Inj 2 Mg/Ml Inj 2 Ml IVP 11/18/25 16:42 Q6H PRN NAUSEA OR VOMITING Protocol Prednisone 30 mg 10/19/25 17:15 10/20/25 08:17 Prednisone 20 Mg Tablet PO 10/26/25 17:08 30 mg QDAY FORTINO Administration Triamcinolone Acetonide 0 gm 10/20/25 09:00 10/20/25 10:14 Triamcinolone Acet Cr 0.025% 80 Gm Tube TOP 11/19/25 08:59 1 appln BID [facility] Administration Plan 74-year-old man with insulin-dependent type 2 diabetes, hypertension, hyperlipidemia, and complete heart block s/p pacemaker (2022) presenting with a progressive, severely painful burning rash that began on the left foot and spread bilaterally up the lower extremities to the buttocks with sloughing lesions, concerning for bullous pemphigoid and admitted for IV antibiotics, high-potency topical steroids, and systemic corticosteroids. #Diffuse lower extremities and buttock rash #Concern for bullous pemphigoid #New rash on abdomen, concern for fungal skin infection - Diffuse, painful rash involving the bilateral lower extremities and buttocks, characterized by burning pain, sloughing lesions, and associated pruritus. - Rash began approximately 5?8 days prior to presentation, initially localized to the left lower extremity near the first metatarsal, with subsequent progression to the right lower extremity and extension proximally to the buttock region. Sloughing lesions are most prominent along the anterior shins, with pain exacerbated by movement and contact. - Patient reports symptomatic relief with water immersion, including soaking his legs in buckets of water. - In the ED, he was noted to have fever and mild tachycardia. - Tele-dermatology consultation recommended hospital admission for initiation of systemic and high-potency topical corticosteroids, antibiotic therapy, and further diagnostic evaluation. - ESR 127 and CRP 14.8 (elevated). Plan: * Triamcinolone BID to affected areas. * Prednisone 30 mg PO daily. * Empiric antibiotics: Doxycycline 100 mg PO BID and Piperacillin?tazobactam (Zosyn) IV to cover for Pseudomonas and MRSA. Cover for possible superimposed skin infection. * Fluconazole 150 mg PO daily. * Monitor for signs of systemic infection (fever, leukocytosis, worsening erythema). * Autoimmune workup: BP180/BP230 antibodies. * Wound care consult for skin protection and barrier management. * Acetaminophen PRN for pain and fever. * Cocci serology pending. * Continue close monitoring of the rash, if there is no clinical improvement, will evaluate for transfer to a burn center. #Insulin-dependent diabetes mellitus #Hypoglycemia - On admission initial glucose 56. - Hemoglobin A1c 10.3. Plan: * Held home medications. * Bedside blood glucose checks ACHS. * Insulin lispro sliding scale, adjusted as necessary. * Carb consistent low diet. * Close glucose monitoring given steroid therapy. * Hypoglycemia protocol in place (noted ED glucose of 56). #Hypertension - Pending med recs. #Hyperlipidemia - Pending med recs. - Triglyceride 113, cholesterol 189, LDL 103, HDL 63. Health Maintenance Disposition: med surg DVT prophylaxis: Heparin 5,000 U subQ GI prophylaxis: not indicated Diet: carb consistent low Farias: none Lines: Peripheral IV CODE STATUS: FULL --- Patient plan of care was discussed with the senior resident, Dr. Farzad Little, and attending physician, . Sejal Lowe, DO PGY-1
[2025-10-20] MEDS: FLUCONAZOLE 150 MG TABLET PO (13:19)
--- NOTE | 2025-10-20 13:22 | PC.NURSE ---
Pending pt referral eval for medical equipment prior to discharge.
[2025-10-20 14:18] LABS: Cocci Serology, IgM Negative (Negative)
--- NOTE | 2025-10-20 15:03 | PC.SS ---
Rounding: Pt has pretty bad rash, team to monitor over night and if needed will consult burn center with [facility] tomorrow. DC plan home when stable. Unsure of tentative DC date.
--- NOTE | 2025-10-20 17:02 | PC.NURSE ---
Attempted to call [facility] to obtain [facility] no answer at this time.
[2025-10-20] MEDS: ACETAMINOPHEN 325 MG TABLET 650 MG PO (18:20)
[2025-10-21] VITALS (8 sets, daily range): BP systolic 119–163; BP diastolic 58–92; PULSE 60–68; RESP 16–93; TEMP 36.1–36.9; O2SAT 95–100
[2025-10-21] MEDS: ACETAMINOPHEN 325 MG TABLET 650 MG PO ×2 (01:33→16:02)
[2025-10-21] MEDS: PIPER/TAZO 3.375 GM PREMIX 3.375 GM/50 ML BAG IV ×3 (05:54→21:01)
[2025-10-21 06:12] LABS: Basophils # (Auto) 0.0 Thou/mm3 (0.0-0.2); Basophils % (Auto) 0 % (0-2.5); Eosinophils # (Auto) 0.0 Thou/mm3 (0.0-0.5); Eosinophils % (Auto) 0 % (0-10); Hematocrit 33.6 % (41.0-53.0); Hemoglobin 10.7 g/dL (13.5-16.0); Immature Granulocytes Auto 0.04 Thou/mm3 (0.00-0.00); Lymphocytes # (Auto) 0.8 Thou/mm3 (1.0-4.8); Lymphocytes % (Auto) 10 % (10-50); Mean Corpuscular HGB Conc 31.8 g/dl (31.0-37.0); Mean Corpuscular Hemoglobin 28.3 pg (25.0-35.0); Mean Corpuscular Volume 89 fL (80-100); Monocytes # (Auto) 0.3 Thou/mm3 (0.0-0.8); Monocytes % (Auto) 4 % (0-12); Neutrophils # (Auto) 6.9 Thou/mm3 (1.8-7.7); Neutrophils % (Auto) 85 % (37-80); Nucleated Red Blood Cell # 0.00 Thou/mm3 (0.00-0.00); Nucleated Red Blood Cell % 0 /100 WBC (0); Platelet Count 196 Thou/mm3 (140-440); RDW Standard Deviation 56.6 fL (35.1-43.9); Red Blood Count 3.78 Miln/mm3 (4.50-5.90); White Blood Count 8.0 Thou/mm3 (3.8-10.6)
[2025-10-21 06:37] LABS: Alanine Aminotransferase 21 U/L (10-49); Albumin, Serum 3.6 gm/dL (3.4-4.8); Albumin/Globulin Ratio 1.4 (1.2-2.2); Alkaline Phosphatase 121 U/L (46-116); Anion Gap 11 (7-16); Aspartate Amino Transferase 20 U/L (0-34); BUN/Creatinine Ratio 27 Ratio (12-20); Bilirubin,Total 0.3 mg/dL (0.3-1.2); Blood Urea Nitrogen 24 mg/dL (9-23); Calcium 8.4 mg/dL (8.3-10.6); Calcium (Corrected) 8.7 mg/dL (8.5-10.1); Carbon Dioxide 23.4 mMol/L (20.0-31.0); Chloride 105 mMol/L (98-107); Creatinine (Component) 0.9 mg/dL (0.6-1.3); Estimated Creatinine Clearance 59.9 mL/min (>60); Globulin 2.5 gm/dL (2.3-3.5); Glucose 164 mg/dL (74-106); Magnesium 2.2 mg/dL (1.6-2.6); Osmolality,Calculated 285 (275-295); Phosphorous 3.2 mg/dL (2.4-5.1); Potassium 4.5 mMol/L (3.4-5.1); Sodium 139 mMol/L (136-145); Total Protein 6.1 gm/dL (5.7-8.2); eGFR > 60 See Note
[2025-10-21] MEDS: DOXYCYCLINE 100 MG TABLET PO ×2 (09:26→21:00)
[2025-10-21] MEDS: HEPARIN SOD INJ 5000 UNIT/ML VIAL SC ×2 (09:27→21:05)
[2025-10-21] MEDS: FLUCONAZOLE 150 MG TABLET PO (09:27)
[2025-10-21] MEDS: CLOBETASOL PROPIONATE CR 15 GM TUBE TOP ×2 (09:28→21:10)
[2025-10-21] MEDS: INSULIN LISPRO (AdmeLOG) 1 UNIT/0.01 ML UNIT SC ×3 (11:17→21:05)
[2025-10-21 11:49] LABS: Cocci Serology, IgG Negative (Negative)
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
[2025-10-21] MEDS: GABAPENTIN 100 MG CAPSULE PO ×2 (14:18→21:00)
[2025-10-22] VITALS: BP 119/58; PULSE 60; RESP 17; TEMP 36.1; O2SAT 96
[2025-10-22 04:00] VITALS: BP 143/78; PULSE 60; RESP 17; TEMP 36.8; O2SAT 99
[2025-10-22] MEDS: GABAPENTIN 100 MG CAPSULE PO (05:10)
[2025-10-22] MEDS: PIPER/TAZO 3.375 GM PREMIX 3.375 GM/50 ML BAG IV (05:10)
[2025-10-22 06:08] LABS: Basophils # (Auto) 0.0 Thou/mm3 (0.0-0.2); Basophils % (Auto) 0 % (0-2.5); Eosinophils # (Auto) 0.0 Thou/mm3 (0.0-0.5); Eosinophils % (Auto) 0 % (0-10); Hematocrit 36.6 % (41.0-53.0); Hemoglobin 11.7 g/dL (13.5-16.0); Immature Granulocytes Auto 0.03 Thou/mm3 (0.00-0.00); Lymphocytes # (Auto) 0.9 Thou/mm3 (1.0-4.8); Lymphocytes % (Auto) 12 % (10-50); Mean Corpuscular HGB Conc 32.0 g/dl (31.0-37.0); Mean Corpuscular Hemoglobin 28.3 pg (25.0-35.0); Mean Corpuscular Volume 89 fL (80-100); Monocytes # (Auto) 0.4 Thou/mm3 (0.0-0.8); Monocytes % (Auto) 5 % (0-12); Neutrophils # (Auto) 6.1 Thou/mm3 (1.8-7.7); Neutrophils % (Auto) 82 % (37-80); Nucleated Red Blood Cell # 0.00 Thou/mm3 (0.00-0.00); Nucleated Red Blood Cell % 0 /100 WBC (0); Platelet Count 191 Thou/mm3 (140-440); RDW Standard Deviation 56.4 fL (35.1-43.9); Red Blood Count 4.13 Miln/mm3 (4.50-5.90); White Blood Count 7.5 Thou/mm3 (3.8-10.6)
[2025-10-22 06:32] LABS: Alanine Aminotransferase 17 U/L (10-49); Albumin, Serum 3.7 gm/dL (3.4-4.8); Albumin/Globulin Ratio 1.4 (1.2-2.2); Alkaline Phosphatase 114 U/L (46-116); Anion Gap 10 (7-16); Aspartate Amino Transferase 15 U/L (0-34); BUN/Creatinine Ratio 23 Ratio (12-20); Bilirubin,Total 0.3 mg/dL (0.3-1.2); Blood Urea Nitrogen 21 mg/dL (9-23); C-Reactive Protein 3.0 mg/dL (0.0-0.9); Calcium 8.7 mg/dL (8.3-10.6); Calcium (Corrected) 8.9 mg/dL (8.5-10.1); Carbon Dioxide 21.6 mMol/L (20.0-31.0); Chloride 108 mMol/L (98-107); Creatinine (Component) 0.9 mg/dL (0.6-1.3); Estimated Creatinine Clearance 59.9 mL/min (>60); Globulin 2.6 gm/dL (2.3-3.5); Glucose 174 mg/dL (74-106); Magnesium 1.9 mg/dL (1.6-2.6); Osmolality,Calculated 286 (275-295); Phosphorous 2.7 mg/dL (2.4-5.1); Potassium 4.3 mMol/L (3.4-5.1); Sodium 140 mMol/L (136-145); Total Protein 6.3 gm/dL (5.7-8.2); eGFR > 60 See Note
[2025-10-22] MEDS: INSULIN LISPRO (AdmeLOG) 1 UNIT/0.01 ML UNIT SC (07:43)
[2025-10-22 08:04] LABS: Sed Rate (ESR) 70 mm/hr (0-20)
[2025-10-22 08:16] VITALS: BP 165/90; PULSE 60; RESP 17; TEMP 36.4; O2SAT 95
[2025-10-22 09:47] VITALS: BP 165/90; PULSE 60
[2025-10-22] MEDS: FLUCONAZOLE 150 MG TABLET PO (09:47)
[2025-10-22] MEDS: HEPARIN SOD INJ 5000 UNIT/ML VIAL SC (09:47)
[2025-10-22] MEDS: CLOBETASOL PROPIONATE CR 15 GM TUBE TOP (09:48)
[2025-10-22] MEDS: INSULIN DEGLUDEC 5 UNIT/0.05 ML (PER 5 UNITS) 10 UNIT SC (09:48)
[2025-10-22] MEDS: DOXYCYCLINE 100 MG TABLET PO (09:48)
--- NOTE | 2025-10-22 13:36 | ESDS_ITS ---
<Statement entered by Oziel Little MD - 10/22/25 16:17> Patient was examined and case was reviewed with team including attending physician. Note reviewed, I agree with most of its contents and agree with the patient's care as documented by Dr. Mynor Little MD PGY-2 Planned Discharge Date 10/22/25 DS: Providers Provider Date of admission: 10/19/25 16:43 Primary care physician: NISHI Sanchez Admitting Provider: Christa Fuller MD Attending Provider on Admission: Christa Fuller MD Consults: 10/20/25 08:00 Referral Wound Care Routine Comment: 10/22/25 11:50 Referral OP Wound Healing Dept Routine Comment: Instructions: Severe fungal dermatitis, skin bx pending. Attending Provider on DC: Wilton Rodrigez Discharging Provider: Sejal Lowe DO Anticipated date of discharge: 10/22/25 DS: Diagnosis Problem List Completed Was Problem List Reviewed/Reconciled?: Yes Hospital Course Hospital Course Hospital course: 74-year-old male with a past medical history significant for insulin-dependent type 2 diabetes mellitus, hypertension, hyperlipidemia, and complete heart block status post pacemaker placement in 2022, who presents for evaluation of a painful rash. The rash began approximately 5-8 days ago, initially involving the left foot. It subsequently spread to both lower extremities and extended to the buttock region about one week later. Patient was admitted for management of possible bullous pemphigoid. During hospital stay patient was managed with IV antibiotic therapy for presumed over MRSA coverage. ER consulted Tele- dermatology who recommended treatment with topical steroids and oral steroid medications. After which new rash developed in the anterior abdomen which looked fungal in nature for which antifungals were ordered. At this time patient is medically stable for discharge. Follow up with primary care physician within 1 week of discharge Instructions have been explained to the patient with regards to their medications and how to take them. Patient was able to explain back to physician and nursing staff how to take their medications. Patient expressed understanding with instructions. Follow up at [facility], [address] [place] [address]. Call [phone] for appointment. Shower daily with clean linens and clothing. If possible obtain clean new footwear. Apply medicated ointment after showering. New Medications: amlodipine 10mg every day Clobetasol apply this topical cream twice a day Doxycycline 100mg twice a day for 5 days Fluconazole 150mg twice a day for 1 week Continue to take the rest of your medications as prescribed by your primary care physician. Patient has been explained that should any symptoms recur or worsen patient is instructed to return to the Emergency Department. #Diffuse lower extremities and buttock rash #Concern for bullous pemphigoid #Insulin-dependent diabetes mellitus #Hypoglycemia #Hypertension #Hyperlipidemia Case discussed with my senior Dr. Panda and my attending Dr. Elia Lowe, DO PGY-1 Status at Discharge Functional status at discharge: independent ambulation Overall status at discharge: patient is back to baseline Time Spent with Patient Time attestation: Total time spent providing and/or coordinating discharge services: Time spent: Greater than 30 minutes Exam Vital Signs Temp Pulse Resp BP Pulse Ox O2 Del Method O2 Flow Rate 97.6 F 60 17 165/90 H 95 Room Air 2 10/22/25 08:16 10/22/25 09:47 10/22/25 08:16 10/22/25 09:47 10/22/25 08:16 10/22/25 08:16 10/19/25 19:36 Narrative Exam Physical Exam General: Awake and in no acute distress. Conversational and non-toxic appearing. HEENT: Normocephalic, atraumatic, extraocular movements intact, pupils equal and reactive to light. Heart: Regular rate and rhythm, no murmurs, rubs or gallops. Lungs: Clear to auscultation with no wheezing or crackles bilaterally. Non- labored respirations, symmetric chest rise, no use of accessory muscles. Abdomen: Soft, nondistended, nontender. No guarding or rebound tenderness. Neurologic: Alert and oriented x3, no gross neurological deficit, and patient able to move all 4 extremities. Extremities: No edema, clubbing or cyanosis. Skin: see attached photos. Lower extremity rash shows decreased erythema with overlying dry, flaky, desquamating scale, gauze dressing in place. Abdominal rash consists of a large, well-demarcated [id number] lesion that appears less erythematous with borders that are less raised today. Psychiatric: Cooperative, appropriate mood and affect. Discharge Plan Plan Patient Disposition: HOME (Self Care) Care Plan Goals: Follow up with primary care physician within 1 week of discharge Instructions have been explained to the patient with regards to their medications and how to take them. Patient was able to explain back to physician and nursing staff how to take their medications. Patient expressed understanding with instructions. Follow up at [facility], [address] [place] [address]. Call [phone] for appointment. Shower daily with clean linens and clothing. If possible obtain clean new footwear. Apply medicated ointment after showering. New Medications: amlodipine 10mg every day Clobetasol apply this topical cream twice a day Doxycycline 100mg twice a day for 5 days Fluconazole 150mg twice a day for 1 week Continue to take the rest of your medications as prescribed by your primary care physician. Patient has been explained that should any symptoms recur or worsen patient is instructed to return to the Emergency Department. Prescriptions/Referrals Prescriptions/Med Rec: New clobetasol 0.05 % cream 1 applic topical BID 14 Days Qty: 60 0RF fluconazole 150 mg tablet 150 mg PO BID Qty: 14 0RF amlodipine 5 mg Tablet 10 mg PO QDAY 30 Days Qty: 60 0RF doxycycline hyclate 100 mg tablet 100 mg PO BID 5 Days Qty: 10 0RF Continued Jardiance 25 mg Tablet 25 mg PO QDAY Janumet 50-1,000 mg Tablet 1 tab PO BID ferrous sulfate [FeroSul] 325 mg (65 mg iron) tablet 325 mg PO DAILY acetaminophen 500 mg capsule 500 mg PO Q6H PRN (Reason: pain) Referrals: Dolores Fernando, [employer] [Primary Care Provider] Patient/Caregiver Discharge Instructions Education Materials: Managing Type 2 Diabetes, ED Fungal Skin Infection (Tinea) Print Language: Uruguayan Stand Alone Forms: [facility]cy Award Info., Patient Portal Info Letter Discharge Order Discharge Orders: Discharge (Routine); Ordered 10/22/25 Ordered By: Sejal Lowe Quality Discharge Quality Measures VTE prophylaxis Attestestation MD Attestation I have examined the patient, reviewed labs and imaging findings, discussed the case with the resident(s), and reviewed entered orders. I agree with the plan of care as outlined in this note. Time Spent: [address] Elia MD
--- NOTE | 2025-10-22 15:32 | PC.SS ---
Rounding Note: Plan to d/c home today.
== END 2025-10-22 11:36 | disposition home or self-care (01) | DRG 381 ==
LOC: SERX 16:48 → SERHOLD 17:01 → S3SX 20:30
PROVIDERS: Admitting Provider Internal Medicine; Emergency Provider Nurse Practitioner Family; PCP Nurse Practitioner Family
DX: L12.0 Bullous pemphigoid (principal); I10 Essential (primary) hypertension; E11.649 Type 2 diabetes mellitus with hypoglycemia without coma; R21 Rash and other nonspecific skin eruption; E78.5 Hyperlipidemia, unspecified; I44.2 Atrioventricular block, complete; Z79.4 Long term (current) use of insulin; Z95.0 Presence of cardiac pacemaker; Z88.4 Allergy status to anesthetic agent
CPT/HCPCS: 36415; 80053; 80061; 80307; 81001; 83036; 83520; 83605; 83735; 84100; 84145; 85025; 85652; 86140; 86331; 86635; 87040; 87070; 87186; 87205; 93005; 99282; J1171; J1644; J1815; J2543; J7512; A9270